=== PATIENT | male | born 1995 | race Native Hawaiian/Other Pacific Islander ===

== ENCOUNTER 2019-02-02 14:52 | Outpatient (CLI) | payer OTHER | END 2019-02-02 21:38 | disposition home or self-care (01) | LOC: CT 14:52 | DX: J32.9 Chronic sinusitis, unspecified (principal) ==

== ENCOUNTER 2021-12-17 02:19 | Emergency (ER) | payer OTHER ==
[~2021-12-17] VITALS: Ht 177.8 cm; Wt 95.3 kg
[2021-12-17 02:29] VITALS: TEMP 98.3
[2021-12-17 03:31] LABS: POTASSIUM 3.7 mmol/L (3.6-5.2)
[2021-12-17 03:37] LABS: PLATELET COUNT 295 K/uL (142-355)
[2021-12-17 04:44] VITALS: BP 113/68
== END 2021-12-17 04:44 | disposition home or self-care (01) ==
LOC: ED 02:19
PROVIDERS: Emergency Medicine Emergency Medical Services
DX: N13.2 Hydronephrosis with renal and ureteral calculous obstruction (principal)
CPT/HCPCS: 36415; 80048; 81002; 81015; 85027; 96360; 96374; 96375; 99284; J1885; J2270; J2405